=== PATIENT | male | born 1955 | race American Indian/Alaskan Native ===

== ENCOUNTER 2017-08-30 10:29 | Outpatient (CLI) | payer MEDICAID ==
[2017-08-30 11:07] LABS: Blood Urea Nitrogen 14 mg/dL (9-20)
--- NOTE | 2017-09-01 10:20 | Cat Scan Report ---
CT ANGIO ABD/FEMORAL ABD AORTA: HISTORY: Aortic aneurysm. TECHNIQUE: Helical CT imaging with 1.25mm reconstructions following IV contrast. Sagittal and Coronal 2D reformatted images. 3 dimensional volume rendering technique. Stenosis was measured using NASCET criteria. COMPARISON: none. FINDINGS: ABDOMINAL AORTA: There are mild partially calcified plaques in the mid to distal abdominal aorta but no evidence for aneurysm. Maximum diameter of the infrarenal aorta measures 2.2 cm. There is less than 20% stenosis. No dissection. The celiac axis, SMA, BLAKE and bilateral single renal arteries are widely patent with less than 20% stenosis. COMMON ILIAC ARTERIES: Mild partially calcified plaques. Less than 20% stenosis. EXTERNAL ILIAC ARTERIES: Mild partially calcified plaques. Less than 20% stenosis. INTERNAL ILIAC ARTERIES: Mild partially calcified plaques. Less than 20% stenosis. RIGHT LOWER EXTREMITY: The right femoral and popliteal arteries demonstrate mild partially calcified plaques a less than 30% stenosis. The distal superficial femoral artery is most affected. The arterial structures distal to the knee are visualized to the ankle. There appear to be moderate calcific plaques in the right peroneal artery. LEFT LOWER EXTREMITY: The left femoral and popliteal arteries demonstrate minimal partially calcified plaques with less than 20% stenosis. The arterial structures distal to the knee are patent to the ankle although moderate atherosclerotic plaques are identified in the left anterior tibial artery. IMPRESSION: Mild to moderate atherosclerotic disease as described. No evidence for aortic aneurysm. Moderate diffuse disease is suspected in the right peroneal artery and left anterior tibial artery but they remain patent.
== END 2017-08-30 10:30 | disposition home or self-care (01) ==
LOC: CT 10:29
PROVIDERS: ATTEND Surgery Vascular Surgery
DX: I70.213 Atherosclerosis of native arteries of extremities with intermittent claudication, bilateral legs (principal); I71.9 Aortic aneurysm of unspecified site, without rupture
CPT/HCPCS: 36415; 75635; 82565; 84520; Q9967